=== PATIENT | male | born 1955 | race Caucasian/White ===

== ENCOUNTER 2018-02-23 22:51 | Inpatient (IN) | payer MEDICARE, MEDICAID ==
[~2018-02-23] VITALS: Ht 177.8 cm; Wt 74.8 kg
[2018-02-23 20:00] VITALS: BP 152/90
[~2018-02-23 22:51] MED LIST: AMLO10TA6 PO; LISI-603 PO
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
[2018-02-24] MEDS ORDERED: RISP2TAB23 PO (00:14)
[2018-02-24] MEDS ORDERED: BENZ2AMP PO (00:14)
[2018-02-24] MEDS ORDERED: DIPH50CA4 PO (00:14)
[2018-02-24] MEDS ORDERED: ACETAMINOPHEN 325 MG TABLET PO PRN (00:30)
[2018-02-24] MEDS ORDERED: MAGNESIUM HYDROXIDE 30 ML UDC PO PRN (00:30)
[2018-02-24] MEDS ORDERED: ZOLPIDEM TARTRATE 5 MG TABLET PO PRN (00:30)
[2018-02-24] MEDS ORDERED: MAG HYDROX/AL HYDROX/SIMETH 30 ML UDC PO PRN (00:30)
[2018-02-24 00:40] VITALS: BP 128/72
[2018-02-24 08:00] VITALS: BP 127/93
[2018-02-24] MEDS: NICOTINE PATCH (21MG) 21 MG PATCH.TD24 TD SCH (08:27)
[2018-02-24] MEDS: LISINOPRIL (20MG) 20 MG TABLET PO SCH (08:27)
[2018-02-24] MEDS: AMLODIPINE BESYLATE 10 MG TABLET PO SCH (08:27)
--- NOTE | 2018-02-24 11:30 | NUR ---
GPS/RN DR NEAL OFFICE [phone] CALLED TO NOTIFY OF ADMISSION. PER HUMAN RESOURCES FILE CLERK DR NEAL WILL SEE THE PT .
[2018-02-24 16:00] VITALS: BP 153/96
[2018-02-24] MEDS: QUETIAPINE FUMARATE 25 MG TABLET PO SCH ×2 (16:50→21:33)
[2018-02-24 20:00] VITALS: BP 135/94
[2018-02-24] MEDS: diphenhydrAMINE HCL 50 MG CAPSULE PO SCH (21:33)
[2018-02-25 08:07] VITALS: BP 150/82
[2018-02-25] MEDS: LORAZEPAM 0.5 MG TABLET PO PRN (08:44)
[2018-02-25] MEDS: QUETIAPINE FUMARATE 25 MG TABLET PO SCH ×3 (08:44→21:35)
[2018-02-25] MEDS: AMLODIPINE BESYLATE 10 MG TABLET PO SCH (08:45)
[2018-02-25] MEDS: NICOTINE PATCH (21MG) 21 MG PATCH.TD24 TD SCH (08:45)
[2018-02-25] MEDS: LISINOPRIL (20MG) 20 MG TABLET PO SCH (08:45)
--- NOTE | 2018-02-25 08:45 | NUR ---
GPS RN NOTE: PATIENT IN THE ROOM RESTING IN BED AWAKE , RESTLESS AND ANXIOUS. ATIVAN 1 MG PO PRN GIVEN PER ORDER WILL CONTINUE MONITORING FOR SAFETY AND BEHAVIOR Q 15 MIN.
--- NOTE | 2018-02-25 08:48 | NUR ---
GPS/RN MESSAGE LEFT TO DR NEAL [facility] [phone] TO SEE THE PT
[2018-02-25 15:16] LABS: BASOPHILS # (AUTO) 0.1 /CMM (0.0-0.2); BASOPHILS % (AUTO) 0.6 % (0.0-2.0); EOSINOPHILS % (AUTO) 0.9 % (0.0-6.0); HEMATOCRIT 50 % (39-51); HEMOGLOBIN 17.1 g/dL (13.5-17.5); LYMPHOCYTES # (AUTO) 1.5 /CMM (0.8-4.8); LYMPHOCYTES % (AUTO) 16.2 % (20.0-44.0); MEAN CORPUSCULAR HGB CONC 35 g/dl (31.0-36.0); MEAN CORPUSCULAR VOLUME 90 fL (80-96); MONOCYTES # (AUTO) 0.9 /CMM (0.1-1.30); MONOCYTES % (AUTO) 10.1 % (2.0-12.0); NEUTROPHILS # (AUTO) 6.7 /CMM (1.8-8.9); NEUTROPHILS % (AUTO) 72.2 % (43.0-81.0); PLATELET COUNT (AUTO) 234 /CMM (150-450); RDW COEFFICIENT OF VARIATION 14.7 (11.5-15.0); RED BLOOD CELL COUNT(AUTO) 5.52 MIL/uL (4.5-6.0); WHITE BLOOD COUNT (AUTO) 9.3 K/uL (4.3-11.0)
[2018-02-25 16:00] VITALS: BP 110/71
[2018-02-25 16:03] LABS: ALBUMIN 3.2 g/dL (3.4-5.0); BILIRUBIN,TOTAL 0.9 mg/dL (0.2-1.0); CALCIUM, SERUM 8.9 mg/dL (8.5-10.1); CREATININE 1.2 mg/dL (0.6-1.3); POTASSIUM 4.3 mmol/L (3.5-5.1); TOTAL PROTEIN, SERUM 7.1 g/dL (6.4-8.2)
[2018-02-25 16:04] LABS: CHOLESTEROL 198 mg/dL (<200); HDL CHOLESTEROL 36 mg/dL (40-60); LDL 140 mg/dL (0-99); TRIGLYCERIDES 195 mg/dL (30-150)
[2018-02-25 19:40] VITALS: BP 122/77
[2018-02-25] MEDS ORDERED: ALBUTEROL HALF STRENGTH 1.25 MG/3 ML VIAL.NEB NEB PRN (20:00)
[2018-02-25] MEDS: diphenhydrAMINE HCL 50 MG CAPSULE PO SCH (21:34)
[2018-02-25] MEDS: ATORVASTATIN 10 MG TABLET PO SCH (21:36)
[2018-02-26 08:00] VITALS: BP 131/97
[2018-02-26] MEDS: LISINOPRIL (20MG) 20 MG TABLET PO SCH (08:23)
[2018-02-26] MEDS: NICOTINE PATCH (21MG) 21 MG PATCH.TD24 TD SCH (08:23)
[2018-02-26] MEDS: QUETIAPINE FUMARATE 25 MG TABLET PO SCH ×4 (08:24→21:34)
[2018-02-26] MEDS: AMLODIPINE BESYLATE 10 MG TABLET PO SCH (08:24)
[2018-02-26] MEDS: ASPIRIN EC 81 MG TABLET.DR PO SCH (09:31)
[2018-02-26 15:51] VITALS: BP 100/69
--- NOTE | 2018-02-26 15:54 | NUR ---
Initial Discharge Note: Pt will be discharged to [facility] [address] [facility] [address] .SW will help patient form a safe and proper discharge in collaboration with MD.
--- NOTE | 2018-02-26 15:55 | NUR ---
SW contacted patients mother Francine Mckeon [phone]. UMAIR left a voicemail.
[2018-02-26 19:41] VITALS: BP 139/80
[2018-02-26] MEDS: ATORVASTATIN 10 MG TABLET PO SCH (21:34)
[2018-02-26] MEDS: diphenhydrAMINE HCL 50 MG CAPSULE PO SCH (21:34)
[2018-02-27] MEDS: LORAZEPAM 0.5 MG TABLET PO PRN (01:15)
[2018-02-27] MEDS: ASPIRIN EC 81 MG TABLET.DR PO SCH (07:59)
[2018-02-27] MEDS: NICOTINE PATCH (21MG) 21 MG PATCH.TD24 TD SCH (07:59)
[2018-02-27] MEDS: LISINOPRIL (20MG) 20 MG TABLET PO SCH (07:59)
[2018-02-27] MEDS: AMLODIPINE BESYLATE 10 MG TABLET PO SCH (07:59)
[2018-02-27] MEDS: QUETIAPINE FUMARATE 25 MG TABLET PO SCH ×4 (07:59→21:10)
[2018-02-27 08:00] VITALS: BP 117/71
--- NOTE | 2018-02-27 10:04 | NUR ---
UMAIR faxed referral to [facility] [address] [facility] [address] .
--- NOTE | 2018-02-27 10:25 | NUR ---
Pts brother Sai Machado [phone] [facility] a voicemail stating not to call pts mother regarding pts discharge and to contact pts brother for any questions/ information regarding brother. Addendum: 02/27/18 at 1028 by ANNA AYALA Pts brother Sai Machado [phone] [facility] a voicemail stating not to call pts mother regarding pts discharge and to contact pts brother for any questions/ information regarding patients discharge.
[2018-02-27 16:00] VITALS: BP 125/74
[2018-02-27 19:43] VITALS: BP 114/88
[2018-02-27] MEDS: diphenhydrAMINE HCL 50 MG CAPSULE PO SCH (21:08)
[2018-02-27] MEDS: ATORVASTATIN 10 MG TABLET PO SCH (21:09)
[2018-02-28] MEDS: AMLODIPINE BESYLATE 10 MG TABLET PO SCH (08:15)
[2018-02-28] MEDS: NICOTINE PATCH (21MG) 21 MG PATCH.TD24 TD SCH (08:15)
[2018-02-28] MEDS: QUETIAPINE FUMARATE 25 MG TABLET PO SCH ×4 (08:15→21:44)
[2018-02-28] MEDS: LISINOPRIL (20MG) 20 MG TABLET PO SCH (08:15)
[2018-02-28] MEDS: ASPIRIN EC 81 MG TABLET.DR PO SCH (08:15)
[2018-02-28 08:37] VITALS: BP 112/74
[2018-02-28] MEDS: LORAZEPAM 0.5 MG TABLET PO PRN (11:14)
[2018-02-28 16:00] VITALS: BP 125/83
--- NOTE | 2018-02-28 19:30 | NUR ---
GPS RN NOTE, RECEIVED PATIENT AWAKE AND IN BED, PATIENT HAS NO COMPLAINTS OR S/S OF PAIN AT THIS TIME. PATIENT IS DISPLAYING NO S/S OF APPARENT DISTRESS AT THIS TIME. PATIENT BREATHING IS UNLABORED WITH EQUAL RISE AND FALL OF THE CHEST. PATIENT IS ALERT AND ORIENTED X 3 ON ROOM AIR WITH A SPO2 OF 98%. PATIENT IS COMPLIANT WITH MEDICATION, ANXIOUS AT TIMES, PARANOID, COOPERATIVE, GUARDED, HAS AUDITORY HALLUCINATIONS, AND NEEDS REORIENTATION. PATIENT DENIES SUICIDE IDEATIONS AND HOMICIDAL IDEATIONS AT THIS TIME. PATIENT ASSISTED WITH TURNING AND REPOSITIONING Q2HR AND PRN FOR COMFORT AND CIRCULATION. PATIENT HAS NO NEEDS AT THIS TIME. PATIENT EDUCATED ON THE USE OF THE CALL BUTTS. PATIENT SIDE RAILS ARE UP X 2, BED IS LOCKED AND LOW, AND I WILL CONTINUE TO MONITOR THIS PATIENT Q 15 MIN WITH THE HELP OF STAFF.
--- NOTE | 2018-02-28 19:30 | NUR ---
GPS RN NOTE, RECEIVED PATIENT AWAKE AND IN BED, PATIENT HAS NO COMPLAINTS OR S/S OF PAIN AT THIS TIME. PATIENT IS DISPLAYING NO S/S OF APPARENT DISTRESS AT THIS TIME. PATIENT BREATHING IS UNLABORED WITH EQUAL RISE AND FALL OF THE CHEST. PATIENT IS ALERT AND ORIENTED X 1 ON ROOM AIR WITH A SPO2 OF 95%. PATIENT IS COMPLIANT WITH MEDICATION, ANXIOUS AT TIMES, PARANOID, COOPERATIVE, IS HYPERVERBAL, AND NEEDS REORIENTATION. PATIENT DENIES SUICIDE IDEATIONS AND HOMICIDAL IDEATIONS AT THIS TIME. PATIENT ASSISTED WITH TURNING AND REPOSITIONING Q2HR AND PRN FOR COMFORT AND CIRCULATION. PATIENT HAS NO NEEDS AT THIS TIME. PATIENT EDUCATED ON THE USE OF THE CALL BUTTS. PATIENT SIDE RAILS ARE UP X 2, BED IS LOCKED AND LOW, AND I WILL CONTINUE TO MONITOR THIS PATIENT Q 15 MIN WITH THE HELP OF STAFF.
[2018-02-28 19:51] VITALS: BP 122/76
[2018-02-28] MEDS: diphenhydrAMINE HCL 50 MG CAPSULE PO SCH (21:44)
[2018-02-28] MEDS: ATORVASTATIN 10 MG TABLET PO SCH (21:44)
[2018-03-01 08:23] VITALS: BP 140/79
[2018-03-01] MEDS: ASPIRIN EC 81 MG TABLET.DR PO SCH (08:43)
[2018-03-01] MEDS: NICOTINE PATCH (21MG) 21 MG PATCH.TD24 TD SCH (08:43)
[2018-03-01] MEDS: LISINOPRIL (20MG) 20 MG TABLET PO SCH (08:43)
[2018-03-01] MEDS: AMLODIPINE BESYLATE 10 MG TABLET PO SCH (08:43)
[2018-03-01] MEDS: QUETIAPINE FUMARATE 25 MG TABLET PO SCH ×3 (08:43→21:59)
[2018-03-01 16:08] VITALS: BP 130/80
[2018-03-01 20:00] VITALS: BP 125/76
[2018-03-01] MEDS: diphenhydrAMINE HCL 50 MG CAPSULE PO SCH (21:59)
[2018-03-01] MEDS: ATORVASTATIN 10 MG TABLET PO SCH (21:59)
[2018-03-02 08:00] VITALS: BP 142/98
[2018-03-02] MEDS: AMLODIPINE BESYLATE 10 MG TABLET PO SCH (08:28)
[2018-03-02] MEDS: NICOTINE PATCH (21MG) 21 MG PATCH.TD24 TD SCH (08:28)
[2018-03-02] MEDS: ASPIRIN EC 81 MG TABLET.DR PO SCH (08:29)
[2018-03-02] MEDS: LISINOPRIL (20MG) 20 MG TABLET PO SCH (08:29)
[2018-03-02] MEDS: QUETIAPINE FUMARATE 25 MG TABLET PO SCH ×3 (08:29→21:52)
--- NOTE | 2018-03-02 10:26 | NUR ---
UMAIR contacted Vargas Black showcase maker at [facility] and Berkley [phone] manager corporate marketing at [facility] [address] [place] [address] [facility], [place] [address] to confirm pts return back to facility upon discharge. UMAIR left both Justin and Berkley a voicemail for call back.
[2018-03-02] MEDS: ONDANSETRON 4 MG TAB.RAPDIS PO PRN (14:27)
--- NOTE | 2018-03-02 14:29 | NUR ---
GPS/RN - N/V Patient had an episode of n/v, oral Zofran 4 mg given with relief. Will continue to monitor.
[2018-03-02 15:54] VITALS: BP 140/83
[2018-03-02 20:00] VITALS: BP 112/71
[2018-03-02] MEDS: diphenhydrAMINE HCL 50 MG CAPSULE PO SCH (21:51)
[2018-03-02] MEDS: ATORVASTATIN 10 MG TABLET PO SCH (21:52)
[2018-03-03 08:08] VITALS: BP 104/72
[2018-03-03] MEDS: NICOTINE PATCH (21MG) 21 MG PATCH.TD24 TD SCH (08:20)
[2018-03-03] MEDS: ASPIRIN EC 81 MG TABLET.DR PO SCH (08:20)
[2018-03-03] MEDS: AMLODIPINE BESYLATE 10 MG TABLET PO SCH (09:00)
[2018-03-03] MEDS: LISINOPRIL (20MG) 20 MG TABLET PO SCH (09:00)
[2018-03-03] MEDS: QUETIAPINE FUMARATE 25 MG TABLET PO SCH ×3 (09:20→21:46)
[2018-03-03] MEDS: ONDANSETRON 4 MG TAB.RAPDIS PO PRN (09:23)
--- NOTE | 2018-03-03 09:24 | NUR ---
GPS/RN-NOTES PATIENT VOMITED X2. ZOFRAN 4 MG P.O GIVEN PRN ORDER. WILL CONT. MONITORING.
[2018-03-03 16:00] VITALS: BP 111/73
--- NOTE | 2018-03-03 17:16 | NUR ---
GPS/RN-NOTES DR. NEAL SEEN THE PATIENT WITH VERBAL ORDER FOR FULL LIQUID START TODAY DINNER TIME FOR 24 HR. NOTED AND CARRIED OUT.
[2018-03-03 20:00] VITALS: BP 115/74
[2018-03-03] MEDS: diphenhydrAMINE HCL 50 MG CAPSULE PO SCH (21:46)
[2018-03-03] MEDS: ATORVASTATIN 10 MG TABLET PO SCH (21:47)
--- NOTE | 2018-03-04 07:37 | NUR ---
GPS RN NOTES PATIENT RECEIVED RESTING INSIDE ROOM. AWAKE, ALERT, VERBALLY RESPONSIVE AND RESPONDS TO VERBAL AND TACTILE STIMULI. BREATHING EVEN AND UNLABORED. NO SOB OR ACUTE DISTRESS NOTED. PATIENT CALM AND RELAXED. NO CHANGES IN LOC NOTED AT THIS TIME. DENIES ANY PAIN OR DISCOMFORT. WILL CONTINUE TO MONITOR. BED LOCKED AND IN LOW POSITION. BILATERAL UPPER SIDE RAILS UP AND LOCKED. CALL LIGHT WITHIN EASY REACH
[2018-03-04 08:00] VITALS: BP 151/68
[2018-03-04] MEDS: NICOTINE PATCH (21MG) 21 MG PATCH.TD24 TD SCH (08:31)
[2018-03-04] MEDS: AMLODIPINE BESYLATE 10 MG TABLET PO SCH (08:32)
[2018-03-04] MEDS: ASPIRIN EC 81 MG TABLET.DR PO SCH (08:32)
[2018-03-04] MEDS: LISINOPRIL (20MG) 20 MG TABLET PO SCH (08:32)
[2018-03-04] MEDS: QUETIAPINE FUMARATE 25 MG TABLET PO SCH ×3 (09:02→21:10)
--- NOTE | 2018-03-04 12:35 | NUR ---
GPS RN NOTES PATIENT SEEN AND EXAMINED BY DR. NEAL. WITH NEW ORDERS TO DC FULL LIQUID DIET, PATIENT MAY START HAVING SOLID FOOD AT DINNER TODAY. VERIFIED TO RESUME PREVIOUS DIET ORDER PRIOR TO FULL LIQUID DIET. ORDER NOTED AND CARRIED OUT. PATIENT MADE AWARE AND VERBALIZED UNDERSTANDING. FNS MADE AWARE
[2018-03-04 16:00] VITALS: BP 121/69
--- NOTE | 2018-03-04 19:30 | NUR ---
RN NOTES RECEIVED PATIENT IN BED WITH EYES CLOSED, EASILY AROUSABLE BY VOICE AND TOUCH. AO X 3, ABLE TO MAKE NEEDS KNOWN. NO ACUTE DISTRESS NOTED. DENIES ANY PAIN AT THIS TIME. PATIENT ABLE TO AMBULATE WITH STEADY GAIT; CONTINENT. SAFETY REMINDERS GIVEN. ON LOW BED WITH BILATERAL UPPER SIDE RAIL UP. PATIENT EDUCATED ON USE OF CALL BUTTS; VERBALIZED UNDERSTANDING. WILL CONTINUE TO MONITOR.
[2018-03-04 19:56] VITALS: BP 120/90
[2018-03-04 20:00] VITALS: BP 120/90
[2018-03-04] MEDS: ATORVASTATIN 10 MG TABLET PO SCH (21:10)
[2018-03-04] MEDS: diphenhydrAMINE HCL 50 MG CAPSULE PO SCH (21:10)
--- NOTE | 2018-03-05 06:22 | NUR ---
RN NOTES PATIENT AWAKE IN BED, RESPIRATIONS EVEN. NO SIGNS OF PAIN NOTED. DUE MEDS GIVEN WITH NO ASE NOTED. NEEDS ATTENDED. SAFETY PRECAUTIONS AND COMFORT MEASURES IN PLACE. WILL GIVE REPORT TO DAY SHIFT FOR CONTINUITY OF CARE.
[2018-03-05 08:02] VITALS: BP 124/87
[2018-03-05] MEDS: NICOTINE PATCH (21MG) 21 MG PATCH.TD24 TD SCH (08:15)
[2018-03-05] MEDS: AMLODIPINE BESYLATE 10 MG TABLET PO SCH (08:15)
[2018-03-05] MEDS: LISINOPRIL (20MG) 20 MG TABLET PO SCH (08:15)
[2018-03-05] MEDS: QUETIAPINE FUMARATE 25 MG TABLET PO SCH ×4 (08:15→21:14)
[2018-03-05] MEDS: ASPIRIN EC 81 MG TABLET.DR PO SCH (08:15)
[2018-03-05 16:09] VITALS: BP 129/90
[2018-03-05 20:19] VITALS: BP 117/79
[2018-03-05] MEDS: diphenhydrAMINE HCL 50 MG CAPSULE PO SCH (21:14)
[2018-03-05] MEDS: ATORVASTATIN 10 MG TABLET PO SCH (21:14)
[2018-03-06 08:00] VITALS: BP 137/74
[2018-03-06] MEDS: LISINOPRIL (20MG) 20 MG TABLET PO SCH (08:29)
[2018-03-06] MEDS: ASPIRIN EC 81 MG TABLET.DR PO SCH (08:29)
[2018-03-06] MEDS: QUETIAPINE FUMARATE 25 MG TABLET PO SCH ×3 (08:29→16:50)
[2018-03-06] MEDS: NICOTINE PATCH (21MG) 21 MG PATCH.TD24 TD SCH (08:29)
[2018-03-06] MEDS: AMLODIPINE BESYLATE 10 MG TABLET PO SCH (08:29)
--- NOTE | 2018-03-06 10:38 | NUR ---
Discharge Note: Pt will be discharged to [facility] ([facility]) [address] [place] [address] at 10:00am via [facility] trip # [phone]. Pts brother Sai [phone] has been notified of pts discharge. Pt denied suicidal/homicidal ideations and denied visual/auditory hallucinations. For smoking cessation, patient will be referred to the [employer] or [employer] [id number]. Patient was also referred to the Nicotine Anonymous meeting on Tuesday March 13, 2018 at 7:00pm at [address] [facility] [address]. Pt has an appointment with Psychiatrist at [facility] where pt is currently receiving mental health services by: Dr. Purnima Harman [address] [place] [address] on March 15, 2018 at 12:00pm. Pts will receive follow up medical care at [facility] by Ground Worker Dr. Faye Nicholson [address] [place] [address] . SW facilitated info to IDT team who are in agreement with discharge arrangement. The multidisciplinary exitcare form was done, printed, signed, and given to the patient.
--- NOTE | 2018-03-06 12:11 | NUR ---
Discharge Note Update: Per Dr. Estrada pt will not be discharged to [facility]. Dr. Estrada told SW that he wants pt to be placed at one of his facilities such as [facility], [facility], and [facility]. UMAIR faxed referral packet to Efra at [facility] [phone] and to [facility] [place] [phone]. Approval is pending and pt will be discharged today.
--- NOTE | 2018-03-06 12:53 | NUR ---
Updated Discharge Note: [facility] [address] [place] [address] at 5:00pm via [facility] trip # [phone]. Pts brother Sai [phone] has been notified. Pt denied suicidal/homicidal ideations and denied visual/auditory hallucinations. Pts mood and affect was calm and cooperative. For smoking cessation, patient will be referred to the [employer] or [employer] [id number]. Patient was also referred to the Nicotine Anonymous meeting on Monday April 09, 2018 at 5:30pm at [address] [facility] [address]. Pt will be under the medical care of Hardboard Factory Worker: [address] [facility] [address] [address] [phone] and Psychiatrist: Dr. Mota [address] [facility] [address], [place] [address] [phone]. SW facilitated info to IDT team who are in agreement with discharge arrangement. The multidisciplinary exitcare form was done, printed, signed, and given to the patient.
[2018-03-06] MEDS ORDERED: METOPROLOL SUCCINATE 50 MG TAB.SR.24H PO SCH (14:00)
[2018-03-06 14:23] VITALS: BP 130/74
[2018-03-06 16:00] VITALS: BP 124/81
--- NOTE | 2018-03-06 17:27 | NUR ---
GPS/RN PATIENT CLEARED FOR DISCHARGE TO [facility] BY DR ELMORE AND DR NEAL, MEDICATIONS RECONCILED BY BOTH DR'S, MEDICATIONS EXIT CARE PACKET AND AFTER CARE PLAN EXPLAINED TO PATIENT, VERBALIZED UNDERSTANDING. BELONGINGS RETURNED, PATIENT REFUSED D/C PHOTO, PATIENT REFUSED TO SIGN ALL D/C PAPERWORK. PATIENT DENIES SI/HI/AH UPON DISCHARGE, PSYCHIATRIC TREATMENT PLANS MET. REPORT TO CALLED FACILITY, SPOKE WITH NIRANJAN. LEFT UNIT CALM, COOPERATIVE, NO DISTRESS WITH AMBULANCE TRANSPORT AT SIDE.
== END 2018-03-06 17:30 | DRG 885 ==
LOC: GPS 22:51
PROVIDERS: ADMIT Psychiatry & Neurology Psychiatry; ATTEND Internal Medicine
DX: F29 Unspecified psychosis not due to a substance or known physiological condition (principal); I12.9 Hypertensive chronic kidney disease with stage 1 through stage 4 chronic kidney disease, or unspecified chronic kidney disease; I25.10 Atherosclerotic heart disease of native coronary artery without angina pectoris; N40.0 Benign prostatic hyperplasia without lower urinary tract symptoms; Z88.0 Allergy status to penicillin; N18.2 Chronic kidney disease, stage 2 (mild); J44.9 Chronic obstructive pulmonary disease, unspecified; Z72.0 Tobacco use
CPT/HCPCS: 36415; 80053-TC; 80061-TC; 85025-TC; 87081-TC; Q0162; Q0163

== ENCOUNTER 2019-01-02 16:38 | Inpatient (IN) | payer MEDICAID, MEDICARE ==
[~2019-01-02] VITALS: Ht 182.9 cm; Wt 89.8 kg
[~2019-01-02 16:38] MED LIST changes: -AMLO10TA6 PO; +AMLO10TA7 PO; +DIPH50CA4 PO
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
--- NOTE | 2019-01-02 17:32 | NUR ---
CALLED GROUNDWATER PROGRAMS DIRECTOR FOR A SITTER.
--- NOTE | 2019-01-02 17:39 | NUR ---
1:1 SARAI GORDILLO AT BEDSIDE
[2019-01-02 18:14] LABS: BASOPHILS # (AUTO) 0.1 /CMM (0.0-0.2); BASOPHILS % (AUTO) 0.7 % (0.0-2.0); EOSINOPHILS % (AUTO) 1.4 % (0.0-6.0); HEMATOCRIT 44 % (39-51); HEMOGLOBIN 14.6 g/dL (13.5-17.5); LYMPHOCYTES # (AUTO) 2.5 /CMM (0.8-4.8); LYMPHOCYTES % (AUTO) 30.1 % (20.0-44.0); MEAN CORPUSCULAR HGB CONC 33 g/dl (31.0-36.0); MEAN CORPUSCULAR VOLUME 94 fL (80-96); MONOCYTES # (AUTO) 0.8 /CMM (0.1-1.30); MONOCYTES % (AUTO) 9.6 % (2.0-12.0); NEUTROPHILS # (AUTO) 4.8 /CMM (1.8-8.9); NEUTROPHILS % (AUTO) 58.2 % (43.0-81.0); PLATELET COUNT (AUTO) 203 /CMM (150-450); RED BLOOD CELL COUNT(AUTO) 4.65 MIL/uL (4.5-6.0); WHITE BLOOD COUNT (AUTO) 8.3 K/uL (4.3-11.0)
[2019-01-02 18:26] LABS: CALCIUM, SERUM 8.8 mg/dL (8.5-10.1); CARBON DIOXIDE 31 mmol/L (21-32); CHLORIDE 106 mmol/L (98-107); CREATININE 0.9 mg/dL (0.6-1.3); GLUCOSE 100 mg/dL (74-106); SODIUM SERUM 143 mmol/L (136-145); UREA NITROGEN, BLOOD 16 mg/dL (7-18)
[2019-01-02 18:38] LABS: ALANINE AMINOTRANSFERASE 23 U/L (12-78); ALBUMIN 3.3 g/dL (3.4-5.0); ALCOHOL, BLOOD < 3 mg/dL (0-0); ALKALINE PHOSPHATASE 56 U/L (46-116); ASPARTATE AMINOTRANSFERASE 15 U/L (15-37); BILIRUBIN,DIRECT 0.1 mg/dL (0.0-0.2); BILIRUBIN,TOTAL 0.3 mg/dL (0.2-1.0)
[2019-01-02 18:39] LABS: ACETAMINOPHEN 0 ug/ml (10-30); SALICYLATE 1.4 mg/dL (2.8-20.0)
--- NOTE | 2019-01-02 18:41 | NUR ---
URINE SENT TO STAT LAB
[2019-01-02 18:56] LABS: APPEARANCE,URINE Clear (CLEAR); BILIRUBIN,URINE Negative (NEGATIVE); BLOOD, URINE Negative Ery/uL (NEGATIVE); COLOR,URINE Yellow (YELLOW); KETONES,URINE Negative (NEGATIVE); LEUKOCYTE ESTERASE ,URINE Negative (NEGATIVE); NITRITE, URINE Negative (NEGATIVE); PROTEIN,URINE Negative (NEGATIVE); UGLUCOSE Negative (NEGATIVE); UROBILINOGEN,URINE 0.2 EU/dL (0.2)
--- NOTE | 2019-01-02 19:08 | NUR ---
PT GIVEN SANDWICH AND JUICE, OK PER FRANNIE MCNEAL
[2019-01-02] MEDS ORDERED: QUET100T PO ×2 (19:21)
[2019-01-02] MEDS ORDERED: AMLO5TAB9 PO (19:21)
[2019-01-02] MEDS ORDERED: ZOLP5TAB2 PO (19:21)
[2019-01-02] MEDS ORDERED: LEVO330T2 PO (19:21)
[2019-01-02] MEDS ORDERED: CHOL200026 PO (19:21)
[2019-01-02] MEDS ORDERED: SENN-168 PO (19:21)
[2019-01-02] MEDS ORDERED: NA P133E RC (19:21)
[2019-01-02] MEDS ORDERED: DIVA250T PO (19:21)
[2019-01-02] MEDS ORDERED: ACET325T53 PO (19:21)
[2019-01-02] MEDS ORDERED: PROP10DR10 EACHEYE (19:21)
[2019-01-02] MEDS ORDERED: BISA10SU61 RC (19:21)
[2019-01-02] MEDS ORDERED: METO-356 PO (19:21)
[2019-01-02] MEDS ORDERED: MAGN400O6 PO (19:21)
--- NOTE | 2019-01-02 20:20 | NUR ---
BED 216
--- NOTE | 2019-01-02 20:27 | NUR ---
REPORT GIVEN TO STEFFEN OQUENDO FOR 216 GP
--- NOTE | 2019-01-02 21:04 | NUR ---
PT TRANSFERRED TO FLOOR
[2019-01-02] MEDS ORDERED: MAGNESIUM HYDROXIDE 30 ML UDC PO PRN (22:00)
[2019-01-02] MEDS ORDERED: ZOLPIDEM TARTRATE 5 MG TABLET PO PRN (22:00)
[2019-01-02] MEDS ORDERED: MAG HYDROX/AL HYDROX/SIMETH 30 ML UDC PO PRN (22:00)
[2019-01-02] MEDS ORDERED: ACETAMINOPHEN 325 MG TABLET PO PRN (22:00)
--- NOTE | 2019-01-03 05:03 | NUR ---
ADMITTED THIS 63 YEARS OLD MALE FROM [facility], PATIENT WAS PLACE ON 5150 HOLD DUE TO DANGERS TO OTHER, YELLING SCREAMING PUSHING TO OTHER PATIENT, DENIES ANY SI/HI PATIENT REFUSED TO SIGN THE CONSENT PAPER ADVISEMENT EXPLAIN AND SERVE TO THE PATIENT WITH HOSPITAL POLICY, SKIN ASSESSMENT IS DONE SKIN IS INTACT PATENT NO OPEN WOUND OR BRUISES NOTED, PATIENT IS CALM AND COOPERATIVE AT THIS TIME, NO C/O PAIN OR ANY DISTRESS WILL CONTINUES TO MONITOR THE PATIENT FOR SAFETY AND FALL EVERY 15 MINS.
[2019-01-03] MEDS ORDERED: NA PHOS,M-B/NA PHOS,DI-BA 1 EA ENEMA RC PRN (07:30)
[2019-01-03] MEDS ORDERED: BISACODYL SUPP (10 MG) 10 MG/SUPP.RECT SUPP.RECT RC PRN (07:30)
[2019-01-03 08:00] VITALS: BP 132/89
[2019-01-03] MEDS: POLYVINYL ALCOHOL 15 ML BOTTLE EACHEYE SCH ×2 (08:55→16:24)
[2019-01-03] MEDS: METOPROLOL SUCCINATE 50 MG TAB.SR.24H PO SCH (08:56)
[2019-01-03] MEDS: NICOTINE PATCH (21MG) 21 MG PATCH.TD24 TD SCH (08:57)
[2019-01-03] MEDS: AMLODIPINE BESYLATE 5 MG TABLET PO SCH (08:57)
[2019-01-03] MEDS: LEVOCARNITINE 330 MG TABLET PO SCH ×3 (11:28→16:24)
--- NOTE | 2019-01-03 13:09 | NUR ---
CARNITOR TABS NOT GIVEN DUE TO FIRST DOSE WAS GIVEN AT 1128.
--- NOTE | 2019-01-03 15:26 | NUR ---
UMAIR contacted Ramona ([phone]), from [facility], and she stated that the pt cannot return. UMAIR will work with the pt and the MD regarding appropriate discharge planning. UMAIR will form a safe and proper discharge.
--- NOTE | 2019-01-03 15:26 | NUR ---
SW contacted the pt's brother, Sai ([phone]), and he was informed that the pt cannot return to the facility that he came from. The SW informed him that the SW will work with the pt's MD and secure an alternative placement for him. UMAIR stated that she would keeo the pt's brother in contact regarding any updates on this case.
--- NOTE | 2019-01-03 15:28 | NUR ---
Initial Discharge Plan: Pt currently resides at [facility] located at [address] [place] [address]; ([phone]). Per pt, he was not able to state whether or not he would like to return. UMAIR contacted Ramona ([phone]), from the facility, and she stated that he cannot. UMAIR will work with the pt and the MD regarding appropriate discharge planning. SW will form a safe and proper discharge.
[2019-01-03 16:00] VITALS: BP 125/89
[2019-01-03] MEDS: DIVALPROEX SODIUM 250 MG TABLET.DR PO SCH ×2 (16:23→21:18)
[2019-01-03] MEDS: QUETIAPINE FUMARATE 100 MG TABLET PO SCH ×2 (16:26→21:18)
[2019-01-03] MEDS: CHOLECALCIFEROL 1,000 UNIT TABLET (VIT D3) PO SCH (17:37)
[2019-01-03 20:00] VITALS: BP 124/73
[2019-01-03] MEDS: SENNOSIDES 8.6 MG TABLET PO SCH (21:17)
[2019-01-03] MEDS: ATORVASTATIN 40 MG TABLET PO SCH (21:18)
[2019-01-04 07:15] LABS: BASOPHILS % (AUTO) 0.6 % (0.0-2.0); EOSINOPHILS % (AUTO) 1.4 % (0.0-6.0); HEMATOCRIT 44 % (39-51); LYMPHOCYTES # (AUTO) 2.2 /CMM (0.8-4.8); LYMPHOCYTES % (AUTO) 29.8 % (20.0-44.0); MEAN CORPUSCULAR HGB CONC 34 g/dl (31.0-36.0); MEAN CORPUSCULAR VOLUME 92 fL (80-96); MONOCYTES # (AUTO) 0.8 /CMM (0.1-1.30); MONOCYTES % (AUTO) 10.2 % (2.0-12.0); NEUTROPHILS # (AUTO) 4.3 /CMM (1.8-8.9); PLATELET COUNT (AUTO) 204 /CMM (150-450); RED BLOOD CELL COUNT(AUTO) 4.76 MIL/uL (4.5-6.0); WHITE BLOOD COUNT (AUTO) 7.5 K/uL (4.3-11.0)
[2019-01-04 07:44] LABS: ALBUMIN 3.3 g/dL (3.4-5.0); BILIRUBIN,TOTAL 0.7 mg/dL (0.2-1.0); CALCIUM, SERUM 8.7 mg/dL (8.5-10.1); POTASSIUM 4.1 mmol/L (3.5-5.1)
[2019-01-04 08:00] VITALS: BP 150/95
[2019-01-04] MEDS: DIVALPROEX SODIUM 250 MG TABLET.DR PO SCH ×4 (08:07→21:13)
[2019-01-04] MEDS: QUETIAPINE FUMARATE 100 MG TABLET PO SCH ×4 (08:07→21:13)
[2019-01-04] MEDS: METOPROLOL SUCCINATE 50 MG TAB.SR.24H PO SCH (08:07)
[2019-01-04] MEDS: NICOTINE PATCH (21MG) 21 MG PATCH.TD24 TD SCH (08:08)
[2019-01-04] MEDS: AMLODIPINE BESYLATE 5 MG TABLET PO SCH ×2 (08:08→08:13)
[2019-01-04] MEDS: LEVOCARNITINE 330 MG TABLET PO SCH ×3 (08:09→16:37)
[2019-01-04] MEDS: POLYVINYL ALCOHOL 15 ML BOTTLE EACHEYE SCH ×2 (08:09→16:37)
[2019-01-04] MEDS ORDERED: ALBUTEROL HALF STRENGTH 1.25 MG/3 ML VIAL.NEB NEB PRN (08:30)
[2019-01-04 16:00] VITALS: BP 113/76
[2019-01-04] MEDS: CHOLECALCIFEROL 1,000 UNIT TABLET (VIT D3) PO SCH (17:14)
--- NOTE | 2019-01-04 19:45 | NUR ---
RN OPENING NOTES RECEIVED REPORT FROM DAYSHIFT RN. FOUND Pt RESTING IN BED. NO S/S OF ACUTE DISTRESS OR SOB NOTED. RESPIRATIONS EVEN AND UNLABORED. SAFETY MEASURES IN PLACE. BED LOW, LOCKED, HOB ELEVATED, & SIDE RAILS UP. WILL CONTINUE TO MONITOR Pt's CONDITION AND SAFETY THROUGHOUT THE NIGHT.
[2019-01-04 20:00] VITALS: BP 114/79
[2019-01-04 21:00] VITALS: BP 114/79
[2019-01-04] MEDS: ATORVASTATIN 40 MG TABLET PO SCH (21:13)
[2019-01-04] MEDS: SENNOSIDES 8.6 MG TABLET PO SCH (21:13)
--- NOTE | 2019-01-05 07:33 | NUR ---
RN SOM NOTES NO SIGNIFICANT CHANGES IN Pt's CONDITION. Pt REMAINS STABLE PER BASELINE. NO S/S OF ACUTE DISTRESS OR SOB NOTED DURING THE NIGHT. ALL NEEDS MET AND ATTENDED. SAFETY MEASURES IN PLACE. ENDORSED TO STEFFEN CHRISTIE FOR Pt's ISSA.
[2019-01-05 08:00] VITALS: BP 130/99
[2019-01-05] MEDS: LEVOCARNITINE 330 MG TABLET PO SCH ×3 (09:17→17:21)
[2019-01-05] MEDS: POLYVINYL ALCOHOL 15 ML BOTTLE EACHEYE SCH ×2 (09:17→17:20)
[2019-01-05] MEDS: AMLODIPINE BESYLATE 5 MG TABLET PO SCH (09:19)
[2019-01-05] MEDS: METOPROLOL SUCCINATE 50 MG TAB.SR.24H PO SCH (09:19)
[2019-01-05] MEDS: QUETIAPINE FUMARATE 100 MG TABLET PO SCH ×4 (09:20→21:44)
[2019-01-05] MEDS: DIVALPROEX SODIUM 250 MG TABLET.DR PO SCH ×4 (09:20→21:44)
--- NOTE | 2019-01-05 15:29 | NUR ---
isolative,in dining rm.no complaints offered.
[2019-01-05 16:00] VITALS: BP 116/93
[2019-01-05] MEDS: CHOLECALCIFEROL 1,000 UNIT TABLET (VIT D3) PO SCH (18:00)
[2019-01-05 20:00] VITALS: BP 121/82
[2019-01-05] MEDS: SENNOSIDES 8.6 MG TABLET PO SCH (21:44)
[2019-01-05] MEDS: ATORVASTATIN 40 MG TABLET PO SCH (21:44)
[2019-01-06 08:00] VITALS: BP 124/81
[2019-01-06] MEDS: METOPROLOL SUCCINATE 50 MG TAB.SR.24H PO SCH (09:23)
[2019-01-06] MEDS: QUETIAPINE FUMARATE 100 MG TABLET PO SCH ×4 (09:23→21:12)
[2019-01-06] MEDS: DIVALPROEX SODIUM 250 MG TABLET.DR PO SCH ×4 (09:23→21:12)
[2019-01-06] MEDS: AMLODIPINE BESYLATE 5 MG TABLET PO SCH (09:25)
[2019-01-06] MEDS: LEVOCARNITINE 330 MG TABLET PO SCH ×3 (09:29→17:12)
[2019-01-06] MEDS: POLYVINYL ALCOHOL 15 ML BOTTLE EACHEYE SCH ×2 (09:30→17:10)
[2019-01-06 16:00] VITALS: BP 130/70
[2019-01-06] MEDS: CHOLECALCIFEROL 1,000 UNIT TABLET (VIT D3) PO SCH (17:09)
[2019-01-06 20:27] VITALS: BP 104/50
[2019-01-06] MEDS: ATORVASTATIN 40 MG TABLET PO SCH (21:12)
[2019-01-06] MEDS: SENNOSIDES 8.6 MG TABLET PO SCH (21:12)
[2019-01-06] MEDS: LORAZEPAM 1 MG TABLET PO PRN (22:52)
[2019-01-06 23:07] VITALS: BP 110/64
[2019-01-07 08:00] VITALS: BP 119/84
[2019-01-07] MEDS: DIVALPROEX SODIUM 250 MG TABLET.DR PO SCH ×4 (09:11→22:00)
[2019-01-07] MEDS: AMLODIPINE BESYLATE 5 MG TABLET PO SCH (09:12)
[2019-01-07] MEDS: METOPROLOL SUCCINATE 50 MG TAB.SR.24H PO SCH (09:13)
--- NOTE | 2019-01-07 09:13 | NUR ---
SW faxed a referral to two intermediate facilities that are listed below: [facility] ([phone]) with attention to Betzy/Barbra/Dariela to the fax number: [phone] [facility] ([phone]) with attention to Sue to the fax number: [phone]
[2019-01-07] MEDS: QUETIAPINE FUMARATE 100 MG TABLET PO SCH ×4 (09:33→21:59)
[2019-01-07] MEDS: POLYVINYL ALCOHOL 15 ML BOTTLE EACHEYE SCH ×2 (09:34→17:00)
[2019-01-07] MEDS: LEVOCARNITINE 330 MG TABLET PO SCH ×3 (09:34→17:22)
--- NOTE | 2019-01-07 09:53 | NUR ---
Charlie ([phone]), shop coordinator at [facility], contacted the SW and stated that the pt is accepted as long as a clearance can be provided at the time of discharge stating that the pt is no longer a danger to himself.
[2019-01-07 16:00] VITALS: BP 121/78
[2019-01-07] MEDS: CHOLECALCIFEROL 1,000 UNIT TABLET (VIT D3) PO SCH (17:26)
[2019-01-07 20:11] VITALS: BP 143/74
[2019-01-07] MEDS: LORAZEPAM 1 MG TABLET PO PRN (20:57)
--- NOTE | 2019-01-07 20:58 | NUR ---
GPS RN NOTES : PT. C/O FEELING ANXIETY YELLING SCREMING ,PACING, ATIVAN 1 MG PO PRN GIVEN PER PT. REQUEST , WILL CONTINUE TO MONITOR.
[2019-01-07] MEDS: SENNOSIDES 8.6 MG TABLET PO SCH (21:59)
[2019-01-07] MEDS: ATORVASTATIN 40 MG TABLET PO SCH (22:00)
[2019-01-08 08:00] VITALS: BP 115/78
[2019-01-08] MEDS: DIVALPROEX SODIUM 250 MG TABLET.DR PO SCH ×4 (09:15→21:36)
[2019-01-08] MEDS: METOPROLOL SUCCINATE 50 MG TAB.SR.24H PO SCH (09:15)
[2019-01-08] MEDS: AMLODIPINE BESYLATE 5 MG TABLET PO SCH (09:16)
[2019-01-08] MEDS: QUETIAPINE FUMARATE 100 MG TABLET PO SCH ×4 (09:16→21:37)
[2019-01-08] MEDS: POLYVINYL ALCOHOL 15 ML BOTTLE EACHEYE SCH ×2 (09:19→17:38)
[2019-01-08] MEDS: LEVOCARNITINE 330 MG TABLET PO SCH ×3 (09:19→17:38)
[2019-01-08 16:00] VITALS: BP 129/82
[2019-01-08] MEDS: CHOLECALCIFEROL 1,000 UNIT TABLET (VIT D3) PO SCH (17:37)
[2019-01-08] MEDS: SENNOSIDES 8.6 MG TABLET PO SCH (21:36)
[2019-01-08] MEDS: ATORVASTATIN 40 MG TABLET PO SCH (21:37)
[2019-01-08 21:51] VITALS: BP 135/91
[2019-01-09 07:09] LABS: BASOPHILS % (AUTO) 0.7 % (0.0-2.0); EOSINOPHILS % (AUTO) 2.5 % (0.0-6.0); HEMATOCRIT 45 % (39-51); HEMOGLOBIN 15.3 g/dL (13.5-17.5); LYMPHOCYTES # (AUTO) 2.6 /CMM (0.8-4.8); LYMPHOCYTES % (AUTO) 36.9 % (20.0-44.0); MEAN CORPUSCULAR HGB CONC 34 g/dl (31.0-36.0); MEAN CORPUSCULAR VOLUME 92 fL (80-96); MONOCYTES # (AUTO) 0.6 /CMM (0.1-1.30); MONOCYTES % (AUTO) 9.3 % (2.0-12.0); NEUTROPHILS # (AUTO) 3.5 /CMM (1.8-8.9); NEUTROPHILS % (AUTO) 50.6 % (43.0-81.0); PLATELET COUNT (AUTO) 233 /CMM (150-450); RED BLOOD CELL COUNT(AUTO) 4.92 MIL/uL (4.5-6.0)
[2019-01-09 07:42] LABS: ALBUMIN 3.5 g/dL (3.4-5.0); BILIRUBIN,TOTAL 0.6 mg/dL (0.2-1.0); CALCIUM, SERUM 9.1 mg/dL (8.5-10.1); CREATININE 0.9 mg/dL (0.6-1.3); POTASSIUM 4.5 mmol/L (3.5-5.1); TOTAL PROTEIN, SERUM 7.4 g/dL (6.4-8.2)
[2019-01-09 08:00] VITALS: BP 123/88
[2019-01-09] MEDS: METOPROLOL SUCCINATE 50 MG TAB.SR.24H PO SCH (09:00)
[2019-01-09] MEDS: POLYVINYL ALCOHOL 15 ML BOTTLE EACHEYE SCH ×2 (09:00→17:00)
[2019-01-09] MEDS: QUETIAPINE FUMARATE 100 MG TABLET PO SCH ×3 (09:00→17:22)
[2019-01-09] MEDS: LEVOCARNITINE 330 MG TABLET PO SCH ×3 (09:00→17:23)
[2019-01-09] MEDS: AMLODIPINE BESYLATE 5 MG TABLET PO SCH (09:00)
[2019-01-09] MEDS: DIVALPROEX SODIUM 250 MG TABLET.DR PO SCH ×4 (09:00→21:20)
[2019-01-09 16:00] VITALS: BP 130/56
[2019-01-09] MEDS: CHOLECALCIFEROL 1,000 UNIT TABLET (VIT D3) PO SCH (17:22)
[2019-01-09 20:22] VITALS: BP 113/78
[2019-01-09] MEDS: SENNOSIDES 8.6 MG TABLET PO SCH (21:20)
[2019-01-09] MEDS: ATORVASTATIN 40 MG TABLET PO SCH (21:21)
[2019-01-09] MEDS ORDERED: QUETIAPINE FUMARATE 100 MG TABLET PO SCH (22:00)
[2019-01-10 08:00] VITALS: BP 106/73
[2019-01-10] MEDS: POLYVINYL ALCOHOL 15 ML BOTTLE EACHEYE SCH ×2 (09:27→16:57)
[2019-01-10] MEDS: LEVOCARNITINE 330 MG TABLET PO SCH ×3 (09:28→16:54)
[2019-01-10] MEDS: QUETIAPINE FUMARATE 100 MG TABLET PO SCH ×4 (09:29→21:12)
[2019-01-10] MEDS: DIVALPROEX SODIUM 250 MG TABLET.DR PO SCH ×4 (09:29→21:13)
[2019-01-10] MEDS: AMLODIPINE BESYLATE 5 MG TABLET PO SCH (12:00)
[2019-01-10] MEDS: METOPROLOL SUCCINATE 50 MG TAB.SR.24H PO SCH (12:00)
[2019-01-10 16:00] VITALS: BP 100/59
[2019-01-10] MEDS: CHOLECALCIFEROL 1,000 UNIT TABLET (VIT D3) PO SCH (17:00)
--- NOTE | 2019-01-10 17:11 | NUR ---
MED NOTES. CONFIRMED MED OK TO GIVE WITH CURRENT BP WITH MD RUANO, SCANNED AND ADMINISTERED MEDICATION. WENT TO SAVE ADMINISTRATION BUT WAS NOT ABLE TO SAVE R/T TO A CHANGE IN DOSE HAVING BEEN ORDERED BY MD. INFORMED MD. CONTACTED PHARMACY AND MEDS ADJUSTED APPROPRIATELY. MD MADE AWARE OF RESOLUTION.
[2019-01-10 20:00] VITALS: BP 123/78
[2019-01-10] MEDS: SENNOSIDES 8.6 MG TABLET PO SCH (21:12)
[2019-01-10] MEDS: ATORVASTATIN 40 MG TABLET PO SCH (21:12)
[2019-01-11 08:00] VITALS: BP 110/78
[2019-01-11] MEDS: DIVALPROEX SODIUM 250 MG TABLET.DR PO SCH ×4 (08:59→21:10)
[2019-01-11] MEDS: QUETIAPINE FUMARATE 25 MG TABLET PO SCH ×3 (08:59→17:02)
[2019-01-11] MEDS: METOPROLOL SUCCINATE 50 MG TAB.SR.24H PO SCH (09:00)
[2019-01-11] MEDS: LEVOCARNITINE 330 MG TABLET PO SCH ×3 (09:00→17:03)
[2019-01-11] MEDS: AMLODIPINE BESYLATE 5 MG TABLET PO SCH (09:00)
[2019-01-11] MEDS: POLYVINYL ALCOHOL 15 ML BOTTLE EACHEYE SCH ×2 (09:05→17:03)
--- NOTE | 2019-01-11 11:20 | NUR ---
UMAIR called the pt's brother, Sai ([phone]), and informed him that the pt was accepted to [facility] ([facility]) and that he will be discharged towards the beginning of the following week. UMAIR stated that we are currently aiming for Monday.
[2019-01-11 16:00] VITALS: BP 111/71
[2019-01-11] MEDS: CHOLECALCIFEROL 1,000 UNIT TABLET (VIT D3) PO SCH (17:02)
--- NOTE | 2019-01-11 19:36 | NUR ---
GPS NURSE SEEN AND EXAMINE BY DR GRAHAM COVERING DR NEAL WITH NO NEW ORDER AT THIS 5TIME.
[2019-01-11 20:00] VITALS: BP 119/73
--- NOTE | 2019-01-11 20:00 | NUR ---
GPS RN NOTES RECEIVED PTS IN BED AWAKE ALERT AND RESPONSIVE ABLE TO MAKE NEEDS KNOWN .DUE MEDS,GIVEN ORDERED ALL NEEDS ATTENDED TOO ,PTS IS COOPERATIVE NO ISSA NOTED AT THIS TIME , V/S STABLE AFEBRILE KEPT PTS LEAN DRY AND COMFORTABLE.WILL CONTINUE TO MONITOR PTS.
[2019-01-11] MEDS: QUETIAPINE FUMARATE 100 MG TABLET PO SCH (21:09)
[2019-01-11] MEDS: ATORVASTATIN 40 MG TABLET PO SCH (21:09)
[2019-01-11] MEDS: SENNOSIDES 8.6 MG TABLET PO SCH (21:09)
[2019-01-12 06:59] LABS: BASOPHILS # (AUTO) 0.1 /CMM (0.0-0.2); BASOPHILS % (AUTO) 0.9 % (0.0-2.0); EOSINOPHILS % (AUTO) 1.5 % (0.0-6.0); HEMATOCRIT 42 % (39-51); HEMOGLOBIN 14.3 g/dL (13.5-17.5); MEAN CORPUSCULAR HGB CONC 34 g/dl (31.0-36.0); MEAN CORPUSCULAR VOLUME 92 fL (80-96); MONOCYTES # (AUTO) 0.6 /CMM (0.1-1.30); NEUTROPHILS # (AUTO) 2.6 /CMM (1.8-8.9); NEUTROPHILS % (AUTO) 40.6 % (43.0-81.0); PLATELET COUNT (AUTO) 202 /CMM (150-450); RED BLOOD CELL COUNT(AUTO) 4.55 MIL/uL (4.5-6.0); WHITE BLOOD COUNT (AUTO) 6.5 K/uL (4.3-11.0)
[2019-01-12 08:00] VITALS: BP 124/60
[2019-01-12] MEDS: POLYVINYL ALCOHOL 15 ML BOTTLE EACHEYE SCH ×3 (09:00→18:16)
[2019-01-12] MEDS: LEVOCARNITINE 330 MG TABLET PO SCH ×3 (10:06→18:16)
[2019-01-12] MEDS: DIVALPROEX SODIUM 250 MG TABLET.DR PO SCH ×4 (10:08→21:02)
[2019-01-12] MEDS: METOPROLOL SUCCINATE 50 MG TAB.SR.24H PO SCH (10:08)
[2019-01-12] MEDS: QUETIAPINE FUMARATE 25 MG TABLET PO SCH ×3 (10:09→18:17)
--- NOTE | 2019-01-12 13:32 | NUR ---
given tylenol 650 mg for lt shoulder discomfort.
[2019-01-12] MEDS: AMLODIPINE BESYLATE 5 MG TABLET PO SCH (14:00)
[2019-01-12 16:00] VITALS: BP 112/81
[2019-01-12] MEDS: CHOLECALCIFEROL 1,000 UNIT TABLET (VIT D3) PO SCH (18:17)
[2019-01-12 20:00] VITALS: BP 110/75
[2019-01-12] MEDS: SENNOSIDES 8.6 MG TABLET PO SCH (21:01)
[2019-01-12] MEDS: ATORVASTATIN 40 MG TABLET PO SCH (21:01)
[2019-01-12] MEDS: QUETIAPINE FUMARATE 100 MG TABLET PO SCH (21:01)
[2019-01-13 08:00] VITALS: BP 109/82
[2019-01-13] MEDS: DIVALPROEX SODIUM 250 MG TABLET.DR PO SCH ×4 (08:56→21:14)
[2019-01-13] MEDS: QUETIAPINE FUMARATE 25 MG TABLET PO SCH ×3 (08:56→17:44)
[2019-01-13] MEDS: METOPROLOL SUCCINATE 50 MG TAB.SR.24H PO SCH (08:57)
[2019-01-13] MEDS: AMLODIPINE BESYLATE 5 MG TABLET PO SCH (08:57)
[2019-01-13] MEDS: POLYVINYL ALCOHOL 15 ML BOTTLE EACHEYE SCH ×2 (09:00→17:44)
[2019-01-13] MEDS: LEVOCARNITINE 330 MG TABLET PO SCH ×3 (09:00→17:43)
[2019-01-13 16:00] VITALS: BP 107/74
[2019-01-13] MEDS: CHOLECALCIFEROL 1,000 UNIT TABLET (VIT D3) PO SCH (17:44)
[2019-01-13 20:00] VITALS: BP 113/72
[2019-01-13] MEDS: SENNOSIDES 8.6 MG TABLET PO SCH (21:13)
[2019-01-13] MEDS: ATORVASTATIN 40 MG TABLET PO SCH (21:14)
[2019-01-13] MEDS: QUETIAPINE FUMARATE 100 MG TABLET PO SCH (21:14)
[2019-01-14 08:00] VITALS: BP 117/77
[2019-01-14] MEDS: QUETIAPINE FUMARATE 25 MG TABLET PO SCH ×2 (09:09→13:48)
[2019-01-14] MEDS: DIVALPROEX SODIUM 250 MG TABLET.DR PO SCH ×2 (09:09→13:48)
[2019-01-14] MEDS: POLYVINYL ALCOHOL 15 ML BOTTLE EACHEYE SCH (09:10)
[2019-01-14] MEDS: LEVOCARNITINE 330 MG TABLET PO SCH ×2 (09:10→13:48)
--- NOTE | 2019-01-14 09:49 | NUR ---
UMAIR called the pt's brother, Sai ([phone]), and informed him that the pt is going to be discharged today to [facility] ([facility]) today instead of Monday because the pt showed improvement over the weekend. He stated that he would like the pt to give him a call when he gets to the facility and asked for the address of the facility so that he can send the pt a gift such as a guitar.
[2019-01-14 10:57] VITALS: BP 117/77
[2019-01-14 10:58] VITALS: BP 117/77
[2019-01-14] MEDS: METOPROLOL SUCCINATE 50 MG TAB.SR.24H PO SCH (10:58)
[2019-01-14] MEDS: AMLODIPINE BESYLATE 5 MG TABLET PO SCH (10:58)
--- NOTE | 2019-01-14 15:16 | NUR ---
Discharge Note: Pt was discharged to [facility] ([facility]) located at [address] [place] [address]; ([phone]). Pt was transported via [facility] (Trip #[id number]) at 1:30PM. Pts brother, Sai ([phone]), was notified of the placement. Upon discharge, the pt appeared to be in a depressed mood and presented with a calm affect. Pt denied both suicidal and homicidal ideation as well as auditory and visual hallucinations. At the time of discharge, the provided the pt with smoking cessation referrals that are listed below. Pt will be under the care of his psychiatrist, Dr. Mota, located at [address] [facility] [address], [place] [address]; and manager air, Dr. Ortiz, located at [address] [place] [address]; . Smoking cessation: [employer] 800-LUNGUSA [employer] [phone] Pt was referred to a phone meeting Monday at 12pm [employer] and the phone number is [phone].
--- NOTE | 2019-01-14 15:18 | NUR ---
PT PREPARED FRO D/C PER MD RUANO, PT TOLERATING ROOM AIR WITHOUT DISTRESS AND DENIES PAIN OR DISCOMFORT AT THIS TIME. PT A&0X3, CALM AND AWARE OF POC. PT BRIEFED ON SOH D/C PACKET, DOCUMENTS AND POC AND VERBALIZING UNDERSTANDING BUT DID NOT SIGN, SIGNED BY RNX2. PT HEALTH NEEDS AND STATUS ENDORSED TO STEFFEN POWELL AT [facility]. PT WITH ALL BELONGINGS AND DOCUMENT SIGNED. PT LEFT WITH EMT TRANS CREW, VITALS WNL AND WITHOUT COMPLAINT.
== END 2019-01-14 15:33 | DRG 885 ==
LOC: ER 16:40 → GPS 20:33
PROVIDERS: ADMIT Psychiatry & Neurology Psychiatry; ATTEND Psychiatry & Neurology Psychiatry
DX: F29 Unspecified psychosis not due to a substance or known physiological condition (principal); F20.0 Paranoid schizophrenia; E11.9 Type 2 diabetes mellitus without complications; E55.9 Vitamin D deficiency, unspecified; E66.3 Overweight; E88.09 Other disorders of plasma-protein metabolism, not elsewhere classified; I10 Essential (primary) hypertension; I25.10 Atherosclerotic heart disease of native coronary artery without angina pectoris; K21.9 Gastro-esophageal reflux disease without esophagitis; J44.9 Chronic obstructive pulmonary disease, unspecified; Z81.8 Family history of other mental and behavioral disorders; Z72.0 Tobacco use; E72.20 Disorder of urea cycle metabolism, unspecified; Z68.26 Body mass index [BMI] 26.0-26.9, adult
CPT/HCPCS: 36415; 80048-TC; 80053-TC; 80061-TC; 80076-TC; 80164-TC; 80305; 81000-TC; 82140-TC; 85025-TC; 87081-TC; G0480

== ENCOUNTER 2020-08-20 18:22 | Inpatient (IN) | payer MEDICARE, OTHER ==
[~2020-08-20] VITALS: Ht 172.7 cm; Wt 76.7 kg
[~2020-08-20 18:22] MED LIST changes: -AMLO10TA7 PO; +AMLO5TAB9 PO; +BISA10SU61 RC; +CHOL200026 PO; -DIPH50CA4 PO; +LEVO330T2 PO; -LISI-603 PO; +MAGN400O6 PO; +METO25TA4 PO; +NA P133E RC; +PROP10DR10 EACHEYE; +SENN-261 PO; +ZOLP5TAB2 PO
--- NOTE | 2020-08-20 18:34 | NUR ---
MAIK FROM [facility] FOR C/O POOR APPETITE AND OCCASIONAL AGGRESSIVE BAHAVIOR. PT WS PLACED IN BED 10. W/ STABLE VS. GET AGGRESSIVE EASILY W/ EVERY QUESTION ASKED. WILL CONT TO MONITOR,
[2020-08-20] MEDS ORDERED: LORAZEPAM INJ 2 MG/ML VIAL ONE (18:53)
[2020-08-20 18:56] LABS: BASOPHILS # (AUTO) 0.1 /CMM (0.0-0.2); BASOPHILS % (AUTO) 0.8 % (0.0-2.0); EOSINOPHILS % (AUTO) 1.1 % (0.0-6.0); HEMATOCRIT 46 % (39-51); HEMOGLOBIN 15.8 g/dL (13.5-17.5); LYMPHOCYTES # (AUTO) 1.8 /CMM (0.8-4.8); LYMPHOCYTES % (AUTO) 25.2 % (20.0-44.0); MEAN CORPUSCULAR HGB CONC 34 g/dl (31.0-36.0); MEAN CORPUSCULAR VOLUME 95 fL (80-96); MONOCYTES # (AUTO) 0.6 /CMM (0.1-1.30); MONOCYTES % (AUTO) 8.8 % (2.0-12.0); NEUTROPHILS # (AUTO) 4.7 /CMM (1.8-8.9); NEUTROPHILS % (AUTO) 64.1 % (43.0-81.0); PLATELET COUNT (AUTO) 194 /CMM (150-450); RED BLOOD CELL COUNT(AUTO) 4.88 MIL/uL (4.5-6.0); WHITE BLOOD COUNT (AUTO) 7.3 K/uL (4.3-11.0)
[2020-08-20] MEDS ORDERED: LORAZEPAM INJ 2 MG/ML VIAL IVP ONE (19:00)
[2020-08-20] MEDS ORDERED: IV NS 0.9% 1,000 ML BAG IV ONE (19:00)
[2020-08-20] MEDS ORDERED: OLANZAPINE 10 MG VIAL IM ONE (19:00)
[2020-08-20 19:08] LABS: ALANINE AMINOTRANSFERASE 22 U/L (12-78); ALBUMIN 3.2 g/dL (3.4-5.0); ALCOHOL, BLOOD < 3 mg/dL (0-0); ALKALINE PHOSPHATASE 57 U/L (46-116); ASPARTATE AMINOTRANSFERASE 16 U/L (15-37); BILIRUBIN,DIRECT 0.1 mg/dL (0.0-0.2); BILIRUBIN,TOTAL 0.3 mg/dL (0.2-1.0); CARBON DIOXIDE 27 mmol/L (21-32); CHLORIDE 103 mmol/L (98-107); CREATININE 1.2 mg/dL (0.6-1.3); GLUCOSE 139 mg/dL (74-106); POTASSIUM 4.1 mmol/L (3.5-5.1); SODIUM SERUM 139 mmol/L (136-145); TOTAL PROTEIN, SERUM 7.2 g/dL (6.4-8.2); UREA NITROGEN, BLOOD 15 mg/dL (7-18)
[2020-08-20 19:19] LABS: ACETAMINOPHEN < 2 ug/ml (10-30); SALICYLATE < 2.8 mg/dL (2.8-20.0)
[2020-08-20] MEDS ORDERED: Z GUARD REMEDY 2 OZ OINT TP PRN (19:30)
[2020-08-20] MEDS ORDERED: BISACODYL SUPP (10 MG) 10 MG/SUPP.RECT SUPP.RECT RC PRN (19:30)
[2020-08-20] MEDS ORDERED: HYDROCODONE/APAP 5/325MG TABLET PO PRN (19:30)
[2020-08-20] MEDS ORDERED: MAG HYDROX/AL HYDROX/SIMETH 30 ML UDC PO PRN (19:30)
[2020-08-20] MEDS ORDERED: ONDANSETRON HCL/PF 4 MG/2 ML VIAL IVP PRN (19:30)
[2020-08-20] MEDS ORDERED: MAGNESIUM HYDROXIDE 30 ML UDC PO PRN ×2 (19:30)
[2020-08-20] MEDS ORDERED: ACETAMINOPHEN 325 MG TABLET PO PRN (19:30)
[2020-08-20] MEDS ORDERED: NA PHOS,M-B/NA PHOS,DI-BA 1 EA ENEMA RC PRN (19:30)
--- NOTE | 2020-08-20 19:30 | NUR ---
PT IS SITTING IN BED AWAKE , EATING A SANDWICH. PT WAS REMINDED ABOUT THE URINE SAMPLE. WILL F/U
--- NOTE | 2020-08-20 19:33 | NUR ---
COVID SWAB COLLECTED AND SENT TO LAB
--- NOTE | 2020-08-20 19:35 | NUR ---
CALLED NURSING SUP FOR BED
[2020-08-20] MEDS ORDERED: ONDA4TAB5 PO (19:42)
[2020-08-20] MEDS ORDERED: QUET300T2 PO (19:42)
[2020-08-20] MEDS ORDERED: QUET50TA PO (19:42)
[2020-08-20] MEDS ORDERED: DIVA500T2 PO (19:42)
[2020-08-20] MEDS ORDERED: IBUP100O19 PO (19:42)
[2020-08-20] MEDS ORDERED: ACET325C7 PO (19:43)
[2020-08-20] MEDS ORDERED: CALC355O18 PO (19:43)
[2020-08-20] MEDS ORDERED: DOCU-141 PO (19:43)
[2020-08-20 20:01] LABS: APPEARANCE,URINE Clear (CLEAR); BILIRUBIN,URINE Negative (NEGATIVE); BLOOD, URINE Negative Ery/uL (NEGATIVE); COLOR,URINE Yellow (YELLOW); KETONES,URINE Trace (NEGATIVE); LEUKOCYTE ESTERASE ,URINE Negative (NEGATIVE); NITRITE, URINE Negative (NEGATIVE); PROTEIN,URINE Negative (NEGATIVE); UGLUCOSE Negative (NEGATIVE)
--- NOTE | 2020-08-20 20:03 | NUR ---
TELE 208
[2020-08-20 20:08] LABS: BACTERIA,URINE None seen /HPF (None Seen); RBC,URINE 0-2 /HPF (0-2); SQUAMOUS EPITHELIAL CELL,UR Few /HPF (None Seen); WBC,URINE 0-2 /HPF (0-3)
--- NOTE | 2020-08-20 20:10 | NUR ---
REPORT CALLED TO ENVIRONMENTAL MAINTENANCE WORKER. WILL TRANSPORT PT VIA ACLS PROTOCOL.
[2020-08-20 20:40] VITALS: BP_SYST 136; BP_SYST 138; BP_DIAS 85; BP_DIAS 91
--- NOTE | 2020-08-20 20:40 | NUR ---
PT IS TRANSFERRED TO THE 2ND FLOOR UNDER ACLS
--- NOTE | 2020-08-20 20:41 | NUR ---
TELE/RN ADMITTING NOTES: REPORT GIVEN BY ER NURSE, ED. PT ARRIVED TO THE UNIT UNDER ACLS PROTOCOL AT 2039 VIA MIRYAM, Anthony/OX2-3, VERBALLY RESPONSIVE AND ABLE TO MAKE NEEDS KNOWN. PT. IS NOT A GOOD HISTORIAN. CLAIMS HE IS HOMELESS AND LIVES ON THE STREET, NO FAMILY AND NO CHILDREN AND "NO TIGER BABIES" PER PT'S OWN WORDS. PAPERWORK STATES HE IS FROM [facility]. NO SOB NOTED. NO S/S OF RESPIRATORY DISTRESS. NO C/O PAIN AT THIS TIME. DEPENDENCY COUNSELOR ON, WITH READING OF NSR, HR 66. ABLE TO AMBULATE WITH ASSISTANCE FROM MIRYAM TO THE BED WITH STEADY GAIT. SATURATING ON 91% ON ROOM AIR, PLACED ON 2L OF OXYGEN VIA NC. SATURATING AT 95%. BREATHING EVEN AND UNLABORED. PER ER REPORT, PT WAS AGGRESSIVE EARLIER. HOWEVER, PT IS NOW CALM AND ABLE TO FOLLOW COMMANDS. ORIENTED TO UNIT AND STAFF. IV ON THE RIGHT AC #20G, INTACT AND PATENT. SKIN ASSESSMENT DONE, NO OPEN WOUNDS NOTED. SKIN INTACT AND WARM TO TOUCH. HAS SCRATCHES ON THE LEFT HIP. BELONGINGS LIST CHECKED AND PLACED IN THE CHART. FALL PRECAUTIONS ON. SAFETY MEASURES ARE INITIATED. BED IN LOW, LOCKED POSITION WITH SR X2. BED ALARM ON, CALL LIGHT WITHIN REACH. WILL CONTINUE TO MONITOR ACCORDINGLY. Addendum: 08/21/20 at 0558 by ANGELA JAIN RN PT IS FROM [facility]
--- NOTE | 2020-08-20 20:47 | NUR ---
TELE/RN NOTES: PHARMACY CALLED TO INFORM THAT MED RECON NEEDS TO BE DONE BY THE ADMITTING DOCTOR. DR. HERNÁNDEZ MADE AWARE AND SAID, HE'LL GET TO IT WHEN HE CAN WHEN HE'S NOT BUSY.
[2020-08-20] MEDS ORDERED: SENNOSIDES 8.6 MG TABLET PO SCH (22:00)
[2020-08-20] MEDS ORDERED: ZOLPIDEM TARTRATE 5 MG TABLET PO PRN (22:00)
[2020-08-20] MEDS: IV NS 0.9% 1,000 ML IV PRN (22:29)
[2020-08-21] VITALS (8 sets, daily range): BP systolic 106–155; BP diastolic 63–97
--- NOTE | 2020-08-21 00:17 | NUR ---
TELE/RN NOTES: PT. STARTED VOMITING AND PEED AT THE SAME TIME ALL OVER THE FLOOR. ORIENTED BACK TO BED, AND KEPT CLEAN AND DRY. EMESIS BAG AT BEDSIDE. ADMINISTERED 4MG ZOFRAN IVP Q6 PRN ORDERED FOR NAUSEA AND VOMITING. VS STABLE AND WNL. WILL CONTINUE TO MONITOR.
--- NOTE | 2020-08-21 06:26 | NUR ---
TELE/RN CLOSING NOTES: PT REMAINS A/OX2-3, VERBALLY RESPONSIVE AND ABLE TO MAKE NEEDS KNOWN. SLEPT WELL THROUGH OUT THE NIGHT. NO SOB NOTED. NO S/S OF RESPIRATORY DISTRESS. NO C/O PAIN AT THIS TIME. CRUSHING MILL OPERATOR ON, WITH READING OF NSR. ON 2L OF OXYGEN VIA NC. SATURATING AT 95%. BREATHING EVEN AND UNLABORED. IV ON THE RIGHT AC #20G, INTACT AND PATENT, RUNNING IV NS @ 75MLS/HR. FALL PRECAUTIONS ON. SAFETY MEASURES ARE INITIATED. BED IN LOW, LOCKED POSITION WITH SR X2. BED ALARM ON, CALL LIGHT WITHIN REACH. WILL ENDORSE TO DAY SHIFT FOR ISSA.
[2020-08-21 07:16] LABS: BASOPHILS # (AUTO) 0.1 /CMM (0.0-0.2); BASOPHILS % (AUTO) 0.7 % (0.0-2.0); EOSINOPHILS % (AUTO) 1.9 % (0.0-6.0); HEMATOCRIT 41 % (39-51); HEMOGLOBIN 13.7 g/dL (13.5-17.5); LYMPHOCYTES # (AUTO) 2.5 /CMM (0.8-4.8); MEAN CORPUSCULAR HGB CONC 34 g/dl (31.0-36.0); MEAN CORPUSCULAR VOLUME 95 fL (80-96); MONOCYTES % (AUTO) 11.9 % (2.0-12.0); NEUTROPHILS # (AUTO) 4.6 /CMM (1.8-8.9); NEUTROPHILS % (AUTO) 55.5 % (43.0-81.0); PLATELET COUNT (AUTO) 178 /CMM (150-450); RED BLOOD CELL COUNT(AUTO) 4.25 MIL/uL (4.5-6.0); WHITE BLOOD COUNT (AUTO) 8.3 K/uL (4.3-11.0)
[2020-08-21 07:54] LABS: CALCIUM, SERUM 8.2 mg/dL (8.5-10.1); PHOSPHORUS 4.1 mg/dL (2.5-4.9); POTASSIUM 4.3 mmol/L (3.5-5.1)
--- NOTE | 2020-08-21 08:00 | NUR ---
tele chief physical therapist: initial assessment received pt in bed awake, alert and oriented x2-3. reality orientation provided prn. reality orientation provided prn. will continue to monitor.
[2020-08-21] MEDS ORDERED: PROPYLENE GLYCOL EACHEYE SCH (09:00)
[2020-08-21] MEDS ORDERED: LEVOCARNITINE 330 MG TABLET PO SCH (09:00)
[2020-08-21] MEDS ORDERED: AMLODIPINE BESYLATE 5 MG TABLET PO SCH (09:00)
[2020-08-21] MEDS ORDERED: METOPROLOL SUCCINATE 25 MG TAB.SR.24H PO SCH (09:00)
--- NOTE | 2020-08-21 10:00 | NUR ---
tele vehicle care specialist: notes resting comfortable in bed. no distress noted. will continue to monitor.
[2020-08-21] MEDS ORDERED: Medication Not On Formulary EA (Calcium Carb/Mag Hydrox/Simeth (Mylanta Tonight 800-270- PO PRN (13:30)
[2020-08-21] MEDS ORDERED: Medication Not On Formulary EA (Ondansetron Hcl (Zofran) 4 MG) PO PRN (13:30)
[2020-08-21] MEDS ORDERED: Medication Not On Formulary EA (Acetaminophen (Tylenol) 650 MG) PO PRN (13:30)
[2020-08-21] MEDS ORDERED: IBUPROFEN 600 MG TABLET PO PRN (14:00)
--- NOTE | 2020-08-21 14:10 | NUR ---
tele restaurant hourly team member: neuro seen by dr. ghosh via telecom and spoke to pt.
--- NOTE | 2020-08-21 16:00 | NUR ---
tele strike off machine operator: notes resting comfortable in bed. no distress noted. will continue to monitor.
[2020-08-21] MEDS: DIVALPROEX SODIUM 500 MG TABLET.DR PO SCH (16:10)
[2020-08-21] MEDS: MEGESTROL ACETATE SUSP 400 MG/10 ML UDC PO SCH (16:10)
[2020-08-21] MEDS: DOCUSATE SODIUM 100 MG CAPSULE PO SCH (16:10)
[2020-08-21] MEDS: QUETIAPINE FUMARATE 25 MG TABLET PO SCH (16:10)
--- NOTE | 2020-08-21 17:00 | NUR ---
tele viticulture teacher: notes covid pcr result negative. nursing clerical supervisor notified and made aware. pt made aware and informed pt that he will be move to non covid unit.
--- NOTE | 2020-08-21 18:00 | NUR ---
tele assembler deck and hull: notes pt still having dinner and will go up after dinner as stated.
--- NOTE | 2020-08-21 18:30 | NUR ---
tele automobile brake bonder: notes transfer pt to non-covid unit via wheelchair with all belongings. report given to loc (toshia) for continuity of care.
--- NOTE | 2020-08-21 19:10 | NUR ---
DATABASE REPORT WRITER: RECEIVED PATIENT Patient in bed, awake, A/O x3. On room air, denies SOB. Sinus rhythm in the Tele monitor. Right AC IV peripheral line, will hang new bag IVF, patient was transferred from Med surg 2 per STEFFEN Felton. Fall precaution maintained.
--- NOTE | 2020-08-21 19:36 | NUR ---
18:30 Patient received transferred from [facility]. Report received from RN. Patient transported via wheelchair. Patient is alert, oriented x 3. Able to make needs known. Patient on telemetry monitoring, sinus rhythm. No s/s of distress or discomfort, no c/o pain. No SOB noted. Patient ambulatory with assistance, able to turn and reposition himself. Patient oriented to new environment, assisted with ADLs. Urinal provided. Bed locked and in lowest position. Call light within easy reach. VS WNL. Endorsed continuity of care to next shift.
[2020-08-21] MEDS: IV NS 0.9% 1,000 ML IV PRN (20:36)
[2020-08-21] MEDS: QUETIAPINE FUMARATE 100 MG TABLET PO SCH (21:09)
[2020-08-22 01:13] VITALS: BP 109/66
--- NOTE | 2020-08-22 06:55 | NUR ---
RUGBY LEAGUE FOOTBALLER: END OF SHIFT REPORT Patient in bed, slept well, no acute events overnight. Sinus rhythm in the Tele monitor. Tolerating room air, O2 sat 97%. IVF infusing. Cooperative, denies pain. Neuro consulted, awaits input. Maintained safety. Will endorse to oncoming RN.
[2020-08-22 06:58] LABS: BASOPHILS % (AUTO) 0.6 % (0.0-2.0); EOSINOPHILS % (AUTO) 1.6 % (0.0-6.0); HEMATOCRIT 40 % (39-51); HEMOGLOBIN 13.4 g/dL (13.5-17.5); LYMPHOCYTES # (AUTO) 2.5 /CMM (0.8-4.8); MEAN CORPUSCULAR HGB CONC 34 g/dl (31.0-36.0); MEAN CORPUSCULAR VOLUME 95 fL (80-96); MONOCYTES # (AUTO) 0.7 /CMM (0.1-1.30); MONOCYTES % (AUTO) 9.5 % (2.0-12.0); NEUTROPHILS # (AUTO) 4.3 /CMM (1.8-8.9); NEUTROPHILS % (AUTO) 56.3 % (43.0-81.0); PLATELET COUNT (AUTO) 167 /CMM (150-450); RED BLOOD CELL COUNT(AUTO) 4.18 MIL/uL (4.5-6.0); WHITE BLOOD COUNT (AUTO) 7.7 K/uL (4.3-11.0)
[2020-08-22 07:17] LABS: CALCIUM, SERUM 8.2 mg/dL (8.5-10.1); CREATININE 0.8 mg/dL (0.6-1.3); MAGNESIUM 2.1 mg/dL (1.8-2.4); PHOSPHORUS 3.2 mg/dL (2.5-4.9); POTASSIUM 3.9 mmol/L (3.5-5.1)
--- NOTE | 2020-08-22 07:30 | NUR ---
INTELLECTUAL PROPERTY LEGAL ASSISTANT OPENING NOTES RECEIVED PATIENT IN BED, ASLEEP. PATIENT ON ROOM AIR; BREATHING IS EVEN AND UNLABORED; NO SOB NOTED AT THIS TIME. NO S/S OF PAIN SUCH FACIAL GRIMACING, MOANING OR GUARDING. TELE MONITOR WITH A CURRENT READING OF SINUS RHYTHM. RAC IV ACCESS G # 20 PRESENT AND INTACT. SAFETY PRECAUTIONS IN PLACE; BED IN LOW POSITION AND LOCKED, RAILS UP X2, CALL LIGHT WITHIN REACH. WILL CONTINUE TO MONITOR PATIENT.
[2020-08-22 08:00] VITALS: BP 118/81
[2020-08-22] MEDS: DIVALPROEX SODIUM 500 MG TABLET.DR PO SCH ×2 (08:09→16:28)
[2020-08-22] MEDS: DOCUSATE SODIUM 100 MG CAPSULE PO SCH ×2 (08:09→16:28)
[2020-08-22] MEDS: MEGESTROL ACETATE SUSP 400 MG/10 ML UDC PO SCH ×2 (08:09→16:28)
[2020-08-22] MEDS: QUETIAPINE FUMARATE 25 MG TABLET PO SCH ×3 (08:09→16:28)
[2020-08-22] MEDS: IV NS 0.9% 1,000 ML IV PRN (10:15)
[2020-08-22] MEDS ORDERED: MEGE400O4 PO (11:45)
[2020-08-22 12:00] VITALS: BP 100/66
[2020-08-22 16:00] VITALS: BP 117/75
--- NOTE | 2020-08-22 18:31 | NUR ---
DAMPENER OPERATOR CLOSING NOTES PATIENT IN BED, AWAKE, A/O X2. PATIENT ON ROOM AIR; BREATHING IS EVEN AND UNLABORED; NO SOB NOTED DURING SHIFT. NO COMPLAINS OF PAIN DURING THE DAY. TELE MONITOR WITH A CURRENT READING OF SINUS RHYTHM. LEFT WRIST IV ACCESS G # 22 PRESENT AND INTACT. ALL NEEDS ATTENDED TO DURING THE DAY. SAFETY PRECAUTIONS IN PLACE; BED IN LOW POSITION AND LOCKED, RAILS UP X2, CALL LIGHT WITHIN REACH. WILL ENDORSE TO HOME HEALTH SCHEDULER NURSE.
[2020-08-22 20:00] VITALS: BP 106/71
--- NOTE | 2020-08-22 20:13 | NUR ---
MS/TELE/RN DURING INITIAL ROUNDING AT 1930, PATIENT WAS ON BED APPEAR SLEEPING, APPEAR COMFORTABLE, NO DISTRESS NOTED, CALL LIGHT IN REACH. WILL MONITOR.
[2020-08-22] MEDS: QUETIAPINE FUMARATE 100 MG TABLET PO SCH (21:39)
[2020-08-23] VITALS: BP 103/59
[2020-08-23 04:00] VITALS: BP 93/56
--- NOTE | 2020-08-23 06:10 | NUR ---
MS/TELE/RN PATIENT IS STILL SLEEPING AT THIS TIME, APPEAR COMFORTABLE, NO SIGNS OF DISTRESS NOTED, CALL LIGHT IN REACH, GOOD SLEEP NOTED THE WHOLE SHIFT, ALL NEEDS ATTENDED AT THIS TIME, WILL CONTINUE TO MONITOR.
[2020-08-23 06:52] LABS: CALCIUM, SERUM 8.5 mg/dL (8.5-10.1); CREATININE 0.8 mg/dL (0.6-1.3); MAGNESIUM 2.1 mg/dL (1.8-2.4); PHOSPHORUS 3.4 mg/dL (2.5-4.9); POTASSIUM 4.1 mmol/L (3.5-5.1)
[2020-08-23 06:54] LABS: BASOPHILS % (AUTO) 0.6 % (0.0-2.0); EOSINOPHILS % (AUTO) 0.5 % (0.0-6.0); HEMATOCRIT 41 % (39-51); HEMOGLOBIN 13.7 g/dL (13.5-17.5); LYMPHOCYTES # (AUTO) 2.3 /CMM (0.8-4.8); LYMPHOCYTES % (AUTO) 30.3 % (20.0-44.0); MEAN CORPUSCULAR HGB CONC 34 g/dl (31.0-36.0); MEAN CORPUSCULAR VOLUME 95 fL (80-96); MONOCYTES # (AUTO) 0.7 /CMM (0.1-1.30); MONOCYTES % (AUTO) 8.9 % (2.0-12.0); NEUTROPHILS # (AUTO) 4.6 /CMM (1.8-8.9); NEUTROPHILS % (AUTO) 59.7 % (43.0-81.0); PLATELET COUNT (AUTO) 184 /CMM (150-450); RED BLOOD CELL COUNT(AUTO) 4.26 MIL/uL (4.5-6.0); WHITE BLOOD COUNT (AUTO) 7.7 K/uL (4.3-11.0)
--- NOTE | 2020-08-23 07:25 | NUR ---
CORPORATE RECRUITER NOTES PATIENT RECEIVED IN BED SLEEPING, EASILY AWAKEN BY NAME. ON ROOM AIR WITH NO SIGNS OF RESPIRATORY DISTRESS WITH EVEN NON-LABORED BREATHING, AND NO SOB NOTED. ON ARCHITECTURE INTERNSHIP SINUS TACH 100'S. PATIENT PRESENTS WITH NO PAIN OR DISCOMFORT AT THIS TIME. IV ACCESS INTACT AND PATENT. SAFETY PRECAUTIONS IMPLEMENTED WITH BED LOCKED, BED IN THE LOWEST POSITION, BILATERAL SIDE RAILS UP AND CALL LIGHT WITHIN EASY REACH OF THE PATIENT. WILL CONTINUE TO MONITOR PATIENT.
[2020-08-23 08:00] VITALS: BP_SYST 123; BP_DIAS 57; BP_DIAS 83
[2020-08-23] MEDS: DOCUSATE SODIUM 100 MG CAPSULE PO SCH (08:46)
[2020-08-23] MEDS: DIVALPROEX SODIUM 500 MG TABLET.DR PO SCH (08:46)
[2020-08-23] MEDS: QUETIAPINE FUMARATE 25 MG TABLET PO SCH ×2 (08:46→12:54)
[2020-08-23] MEDS: MEGESTROL ACETATE SUSP 400 MG/10 ML UDC PO SCH (08:47)
[2020-08-23] MEDS: IV NS 0.9% 1,000 ML IV PRN (08:48)
--- NOTE | 2020-08-23 11:30 | NUR ---
MS RN NOTES [facility] SPOKE WITH KRYSTLE AND GAVE REPORT. INFORMED PATIENT THEOLOGY TEACHER TIME WILL BE AT 2PM, AND PATIENT WILL BE GOING TO ROOM 218 BED A. WILL CONTINUE TO MONITOR PATIENT.
--- NOTE | 2020-08-23 14:30 | NUR ---
PHOTO MASK PROCESSOR NOTES PATIENT AWAKE, ALERT AND ORIENTED. ON ROOM AIR WITH NO SIGNS OF RESPIRATORY DISTRESS NOTED, WITH EVEN NON-LABORED BREATHING, AND WITH NO SOB NOTED. PATIENT'S VITAL SIGNS STABLE. ID BAND REMOVED. IV ACCESS REMOVED WITH IV CATHETER TIP INTACT AND APPLIED PRESSURE TO SITE. PROVIDED EXIT CARE TO PATIENT, EDUCATED AND EXIT CARE PACKET GIVEN TO PATIENT. PATIENT ACCOUNTED FOR ALL BELONGINGS. PATIENT REFUSED SKIN ASSESSMENT, NO PICTURES TAKEN, EDUCATED AND EXPLAINED THE NEED, PATIENT STILL REFUSED. PATIENT LEFT UNIT VIA GURNEY ACCOMPANIED BY 2 EMT'S.
== END 2020-08-23 14:30 | DRG 640 ==
LOC: ER 18:26 → MEDSG2 20:17 → TELE2 21:15 → TELE 08-21 18:11 → MED 08-23 08:11
PROVIDERS: ADMIT Internal Medicine; ATTEND Nurse Practitioner Acute Care
DX: E86.0 Dehydration (principal); E43 Unspecified severe protein-calorie malnutrition; G93.40 Encephalopathy, unspecified; Z68.25 Body mass index [BMI] 25.0-25.9, adult; E11.9 Type 2 diabetes mellitus without complications; F03.90 Unspecified dementia, unspecified severity, without behavioral disturbance, psychotic disturbance, mood disturbance, and anxiety; F32.9 Major depressive disorder, single episode, unspecified; F41.9 Anxiety disorder, unspecified; I10 Essential (primary) hypertension; J44.9 Chronic obstructive pulmonary disease, unspecified; R29.6 Repeated falls; Z88.0 Allergy status to penicillin; R53.1 Weakness; E88.09 Other disorders of plasma-protein metabolism, not elsewhere classified
CPT/HCPCS: 36415; 71045-TC; 80048-TC; 80076-TC; 81000-TC; 83735-TC; 84100-TC; 85025-TC; 87081-TC; G0378; G0480; J2060; J2405; J7030; U0003-CS